=== PATIENT | female | born 1995 | race Two or more races ===

== ENCOUNTER → 2025-03-31 | Outpatient (REF) | payer OTHER | LOC: M PLALAB 12:02 | PROVIDERS: ATTEND Nurse Practitioner Family | DX: Z34.80 Encounter for supervision of other normal pregnancy, unspecified trimester (principal) ==

== ENCOUNTER → 2025-04-06 | Outpatient (CLI) | payer OTHER ==
[2025-04-06 15:10] LABS: PLATELET COUNT, AUTOMATED 290 10^3/uL (150-450)
[2025-04-06 16:04] LABS: HIV 1&2 SCREEN NEGATIVE (NEGATIVE)
[2025-04-06 16:13] LABS: HEPATITIS C VIRUS ABY INDEX 0.05 INDEX (<0.8)
[2025-04-06 16:25] LABS: Trichomonas vaginalis (AMP) NOT DETECTED (NEGATIVE)
[2025-04-06 16:48] LABS: GC DNA AMPLIFICATION NEGATIVE (NEGATIVE)
== END ==
LOC: M LAB 13:54
PROVIDERS: ATTEND Nurse Practitioner Family
DX: Z34.80 Encounter for supervision of other normal pregnancy, unspecified trimester (principal)

== ENCOUNTER → 2025-04-18 | Outpatient (REF) ==
[2025-04-18 12:07] LABS: SOFIA COVID ANTIGEN NEGATIVE (NEGATIVE)
== END ==
LOC: M EMP 11:04
PROVIDERS: ATTEND Family Medicine
DX: Z11.52 Encounter for screening for COVID-19 (principal)